=== PATIENT | male | born 1965 ===

== ENCOUNTER 2016-11-02 14:19 | Observation (INO) | payer OTHER ==
[2016-11-02] MEDS ORDERED: Piperacillin/Tazobact 3.375 gm 100 ML IV STA (14:55)
[2016-11-02] MEDS ORDERED: Piperacillin/Tazobact 3.375 gm 100 ML IVPB ONE (15:44)
[2016-11-02 15:57] LABS: BASO # 0.1 K/uL (0.0-0.2); BASO % 1.2 % (0.0-2.0); EOS # 0.1 K/uL (0.0-0.7); EOS % 2.4 % (0.0-4.0); HEMATOCRIT 41.6 % (35.0-51.0); LYMPH # 1.7 K/uL (1.0-4.3); LYMPH % 37.4 % (20.0-40.0); MEAN CELL VOLUME 79.2 fL (80.0-94.0); MEAN CORPUSCULAR HGB CONC 34.2 g/dL (33.0-37.0); MEAN PLATELET VOLUME 10.7 fL (7.2-11.7); MONO # 0.2 K/uL (0.0-0.8); NRBC % 0.1 % (0.0-2.0); RED CELL DISTRIBUTION WIDTH 13.4 % (11.5-14.5); WHITE BLOOD COUNT 4.6 K/uL (4.8-10.8)
[2016-11-02 16:00] LABS: CHLORIDE 106 mmol/L (98-107); POTASSIUM 4.2 mmol/L (3.6-5.2); SODIUM 147 mmol/L (132-148)
[2016-11-02 16:02] LABS: AST/SGOT 32 U/L (17-59); BILIRUBIN,TOTAL 0.6 mg/dL (0.2-1.3); CARBON DIOXIDE 29 mmol/L (22-30); GFR AFRICAN-AMERICAN > 60
[2016-11-02 16:03] LABS: ALB/GLOB RATIO 1.3 (1.0-2.1); ALKALINE PHOSPHATASE 114 U/L (38-126); ALT/SGPT 62 U/L (21-72); BLOOD UREA NITROGEN 11 mg/dL (9-20); CALCIUM 8.8 mg/dl (8.6-10.4); GLUCOSE,RANDOM 179 mg/dL (75-110); TOTAL PROTEIN 7.1 g/dL (6.3-8.3)
--- NOTE | 2016-11-02 16:12 | C.PDOC ---
History Of Present Illness Patient is a 51 year old male, with Hx of IDDM (well controlled), that presents to the ED for evaluation of painless swelling and discoloration over the right 2nd toe since yesterday. Otherwise, denies any fever, chills, pain, drainage, numbness, weakness, or any other associated symptoms at this time. Time Seen by Provider: 11/02/16 14:45 Chief Complaint (Nursing): Lower Extremity Problem/Injury History Per: Patient History/Exam Limitations: no limitations Onset/Duration Of Symptoms: Days (1) Current Symptoms Are (Timing): Still Present Severity: None Pain Scale Rating Of: 0 Recent travel outside of the [place]: No Additional History Per: Patient Past Medical History Reviewed: Historical Data, Nursing Documentation, Vital Signs Vital Signs: Last Vital Signs Temp 98.1 F 11/02/16 14:38 Pulse 108 H 11/02/16 14:38 Resp 18 11/02/16 14:38 BP 105/30 L 11/02/16 14:38 Pulse Ox 100 11/02/16 16:31 - Medical History PMH: Diabetes Family History: States: Unknown Family Hx - Social History Hx Alcohol Use: No Hx Substance Use: No Review Of Systems Except As Marked, All Systems Reviewed And Found Negative. Constitutional: Negative for: Fever, Chills Musculoskeletal: Negative for: Leg Pain, Foot Pain Skin: Positive for: Other (swelling and discoloration to right 2nd toe) Neurological: Negative for: Weakness, Numbness Physical Exam - Physical Exam Appears: Non-toxic, No Acute Distress Skin: Warm, Dry, Other (erythema, and purple discoloration to right 2nd toe) Head: Atraumatic, Normacephalic Eye(s): bilateral: Normal Inspection, EOMI Neck: Supple Chest: Symmetrical Cardiovascular: Rhythm Regular Respiratory: Normal Breath Sounds, No Rales, No Rhonchi, No Wheezing Extremity: Normal ROM, No Tenderness, Capillary Refill (< 2 sec.), No Deformity , Swelling (right 2nd toe) Pulses: Left Dorsalis Pedis: Normal, Right Dorsalis Pedis: Normal Neurological/Psych: Oriented x3, Normal Speech, Normal Cognition, Normal Motor, Normal Sensation ED Course And Treatment - Laboratory Results Result Diagrams: 11/02/16 15:54 11/02/16 16:00 ECG: Interpreted By Me ECG Rhythm: Sinus Rhythm ECG Interpretation: Normal Rate From EC O2 Sat by Pulse Oximetry: 100 (on RA) Pulse Ox Interpretation: Normal - Radiology CXR: Interpreted by Me CXR Interpretation: Yes: No Acute Disease - Other Rad Right 2nd toe X-Ray: Interpreted by Me, Viewed By Me Interpretation: r 2ND TOE cellulitis, no osteo, no gas Progress Note: Blood work, CXR, EKG ordered and reviewed. Patient was treated with Zosyn. Reevaluation Time: 16:49 Reassessment Condition: Improved - Physician Consult Information Outcome Of Conversation: PMD Dr. Ceja- [facility]. 1630: d/w Dr. Prabhakar - Medicine [employer]- ok to med Surg obs. Medical Decision Making Medical Decision Making: diabetic foot cellulitis, started @ R 2nd toe. Disposition Doctor Will See Patient In The: Hospital Counseled Patient/Family Regarding: Studies Performed, Diagnosis - Disposition Disposition: HOSPITALIZED Disposition Time: 16:51 Condition: GOOD - Clinical Impression Clinical Impression: Cellulitis in diabetic foot - Scribe Statement The provider has reviewed the documentation as recorded by the Kianna Vidal Provider Attestation: All medical record entries made by the Kianna were at my direction and personally dictated by me. I have reviewed the chart and agree that the record accurately reflects my personal performance of the history, physical exam, medical decision making, and the department course for this patient. I have also personally directed, reviewed, and agree with the discharge instructions and disposition.
--- NOTE | 2016-11-02 17:27 | RAD ---
PROCEDURE: CHEST RADIOGRAPH, 1 VIEW HISTORY: Shortness of breath COMPARISON: None available. FINDINGS: LUNGS: Clear. PLEURA: No pneumothorax or pleural fluid seen. CARDIOVASCULAR: Normal. OSSEOUS STRUCTURES: No significant abnormalities. VISUALIZED UPPER ABDOMEN: Normal. OTHER FINDINGS: None. IMPRESSION: No active disease.
--- NOTE | 2016-11-02 17:38 | RAD ---
Right toe 2nd digit three views History: Cellulitis. Comparison: None available. Findings: Soft tissue swelling seen at the level of the 2nd digit consistent with known cellulitis. No evidence of gas formation within the soft tissues. Minimal cortical irregularity seen along the distal tuft of the 2nd distal phalanx, nonspecific. Degenerative changes noted at the 1st MTP joint space with some subchondral sclerosis. Impression: Soft tissue swelling seen at the level of the 2nd digit consistent with known cellulitis. No evidence of gas formation within the soft tissues. Minimal cortical irregularity seen along the distal tuft of the 2nd distal phalanx, nonspecific. Degenerative changes noted at the 1st MTP joint space with some subchondral sclerosis. If there is concern for acute osteomyelitis, consider further evaluation with 3 phase bone scan and or MRI.
[2016-11-02 20:21] LABS: RBC URINE 1 /hpf (0-3); URINE BILIRUBIN NEGATIVE (NEGATIVE); URINE BLOOD NEGATIVE (NEGATIVE); URINE COLOR Yellow (YELLOW); URINE GLUCOSE (UA) 3+ mg/dL (Normal); URINE KETONE NEGATIVE (NEGATIVE); URINE LEUKOCYTE ESTERASE NEG Leu/uL (Negative); URINE PROTEIN NEGATIVE (NEGATIVE); URINE UROBILINOGEN NORMAL mg/dL (0.2-1.0); WBC URINE 1 /hpf (0-5)
--- NOTE | 2016-11-02 21:58 | CP.PCM.PN ---
Subjective - Date & Time of Evaluation Date of Evaluation: 11/02/16 Time of Evaluation: 20:40 - Subjective Subjective: H&P dictated #[id number] Objective - Vital Signs/Intake and Output Vital Signs (last 24 hours): Temp Pulse Resp BP Pulse Ox 98.6 F 90 18 185/92 H 100 11/02/16 21:36 11/02/16 21:36 11/02/16 21:36 11/02/16 21:36 11/02/16 21:36 - Medications Medications: Current Medications Insulin Human Regular (Novolin R) 0 unit SC ACHS CB PRN Reason: Protocol
[2016-11-02] MEDS: (Novolin R) Insulin Human Regular 100 units/ml vial SC SCH (22:31)
--- NOTE | 2016-11-03 04:19 | HP ---
CHIEF COMPLAINT: Right foot swelling noted by his this morning. HISTORY OF PRESENT ILLNESS: The patient is a 51-year-old male with past medical history of diabetes mellitus , hypertension, hyperlipidemia who has been following up with Dr. Ceja as a primary care physician, came into the ED with a 1-day history of right big toe swelling and oozing noted by his . As per the patient, this morning, his noticed his right big toe today swollen and red. The patient did not have any pain or any erythema, which made him come to the Emergency Room. He denies any headache, dizziness. Denies any chest pain, shortness of breath, or wheezing. Denies any nausea, vomiting, abdominal pain, diarrhea, or constipation. Denies any urinary complaints. Denies any neurologic symptoms. PAST MEDICAL HISTORY: As described, diabetes mellitus for 8-10 years, hypertension, hyperlipidemia. PAST SURGICAL HISTORY: Denies any past surgical history. FAMILY HISTORY: Diabetes in both parents. PERSONAL HISTORY: He is , having 4 children, currently unemployed. SOCIAL HISTORY: He quit smoking about 12 years ago, used to smoke very light 5-6 cigarettes per day, used to drink heavily, but quit 1 year ago. Denies any other drug abuse. ALLERGIES: No known drug allergies. MEDICATIONS: Zocor 20 mg p.o. at bedtime, metformin 1 gram p.o. b.i.d., lisinopril p.o. daily , Toujeo 5 units subQ at night and 10 units subcutaneous with breakfast. REVIEW OF SYSTEMS: As described in history of present illness. All other systems reviewed and were found to be negative. PHYSICAL EXAMINATION: GENERAL: Middle-aged male, lying in bed, in no acute distress. VITAL SIGNS: Blood pressure 105/30, pulse 108, respirations 18, temperature 98.1 degrees Fahrenheit, O2 sat 100% on room air. HEENT: Pupils equal, round, reacting to light and accommodation. Extraocular muscles intact. No icterus, no pallor, no oral thrush. No pharyngeal congestion. NECK: Supple. No JVD, no thyromegaly. CHEST: Moving equally bilaterally on respiration. LUNGS: Bilateral vesicular breath sounds. No wheezing, no rhonchi. CARDIOVASCULAR: S1, S2 present, regular. ABDOMEN: Soft, nontender. Bowel sounds present. No guarding, no rigidity, no rebound tenderness noted. CENTRAL NERVOUS SYSTEM: Alert, awake, oriented x 3. No focal deficits noted. EXTREMITIES: Right big toe and second toe swollen, erythematous, slightly warm to touch, slightly oozing noted. There is blisterous lesion on the plantar aspect of the second toe. LABORATORY DATA: Labs done from the ED: WBC 4.6, hemoglobin 14.2, hematocrit 41.6, platelets 131. Sodium 147, potassium 4.2, chloride 106, bicarbonate 29, BUN 11, creatinine 0.7, glucose 233, calcium 8.8, total bilirubin 0.6, AST 32, ALT 62, alkaline phosphatase 114, total protein 7.1, albumin 4.0. UA: Specific gravity 1.017, pH 5.0, glucose 3+, otherwise negative. Foot x-ray, soft tissue swelling seen at the level of the second digit. Chest x -ray, no active disease. ASSESSMENT: 1. A middle-aged male with history of hypertension, hyperlipidemia, diabetes mellitus, who has been following up with Dr. Ceja, admitted for right great toe and second toe swelling with cellulitis. 2. Right foot cellulitis appears to be superficial, rule out osteomyelitis. 3. Diabetes mellitus. 4. Hypertension. 5. Hyperlipidemia. PLAN: The patient is being admitted to regular floor. The patient received Zosyn in the ED. We will continue with Zosyn and vancomycin. We will obtain podiatry and ID consults. We will continue with his home medications of Toujeo 10 units in the morning and 5 units at night, lisinopril. We will hold metformin. Continue with Zocor. Repeat labs in the morning. Check EKG. We will add further recommendation as his clinical course progresses. Yeimi Cooper MD cc: [id number] TT: 11/03/2016 04:18:51 hn MTDKlaus
[2016-11-03] MEDS: (Novolin R) Insulin Human Regular 100 units/ml vial SC SCH ×4 (07:47→22:03)
[2016-11-03 09:05] LABS: BASO % 0.9 % (0.0-2.0); EOS # 0.1 K/uL (0.0-0.7); EOS % 3.7 % (0.0-4.0); HEMATOCRIT 36.9 % (35.0-51.0); LYMPH # 1.8 K/uL (1.0-4.3); LYMPH % 59.5 % (20.0-40.0); MEAN CELL VOLUME 78.6 fL (80.0-94.0); MEAN CORPUSCULAR HEMOGLOBIN 26.7 pg (27.0-31.0); MEAN CORPUSCULAR HGB CONC 33.9 g/dL (33.0-37.0); MEAN PLATELET VOLUME 10.7 fL (7.2-11.7); MONO # 0.2 K/uL (0.0-0.8); NRBC % 0.2 % (0.0-2.0); RED CELL DISTRIBUTION WIDTH 13.1 % (11.5-14.5); WHITE BLOOD COUNT 3.1 K/uL (4.8-10.8)
[2016-11-03 09:26] LABS: CHLORIDE 102 mmol/L (98-107); POTASSIUM 4.2 mmol/L (3.6-5.2); SODIUM 140 mmol/L (132-148)
[2016-11-03 09:28] LABS: ALB/GLOB RATIO 1.7 (1.0-2.1); ALKALINE PHOSPHATASE 105 U/L (38-126); ALT/SGPT 51 U/L (21-72); AST/SGOT 30 U/L (17-59); BILIRUBIN,TOTAL 0.5 mg/dL (0.2-1.3); BLOOD UREA NITROGEN 10 mg/dL (9-20); CARBON DIOXIDE 33 mmol/L (22-30); CHOLESTEROL 186 mg/dL (0-199); GFR AFRICAN-AMERICAN > 60; GLUCOSE,RANDOM 152 mg/dL (75-110); TOTAL PROTEIN 5.4 g/dL (6.3-8.3)
[2016-11-03 09:29] LABS: CALCIUM 8.8 mg/dl (8.6-10.4)
[2016-11-03] MEDS: TOUJEO 300 UNITS/ML SC SCH (10:46)
--- NOTE | 2016-11-03 13:18 | NM ---
PROCEDURE: Three-phase bone scan HISTORY: Osteomyelitis suspected right 2nd digit. COMPARISON: November 02, 2016. Right foot reported separately. TECHNIQUE: Radionuclide dose: 23.1 Tc99m MDP Site of administration: Indwelling left upper extremity intravenous line Technique: Three-phase attention right foot 2nd digit. FINDINGS: Flow component: Increased flow to the right foot without focal abnormality. Particular attention directed to the 2nd digit. Blood pool component: No focal abnormalities. Delayed images at 3:00: Degenerative changes right ankle and right foot asymmetric compared to the left ankle and foot. Degenerative changes in both knees. IMPRESSION: Increased flow right lower extremity consistent with cellulitis without evidence of acute osseous process/ acute osteomyelitis. One
--- NOTE | 2016-11-03 13:40 | CP.PCM.CON ---
History of Present Illness - History of Present Illness History of Present Illness: 51 y/o male patient with PMH of DM and Neuropathy seen and evaluated at bedside after request for podiatry consult for right 2nd digit. Patient was resting comfortably in bed and in NAD. Patient states that he noticed discoloration of right foot 2nd toe however patient denies any pedal pain at this time. Patient also denies any ever, chills, drainage, numbness, weakness, or any other associated symptoms at this time. Past Patient History - Past Medical History & Family History Past Medical History?: Yes - Past Social History Smoking Status: Former Smoker - CARDIAC Hx Cardiac Disorders: Yes Hx Hypertension: Yes - PULMONARY Hx Respiratory Disorders: No - NEUROLOGICAL Hx Neurological Disorder: No - HEENT Hx HEENT Problems: No - RENAL Hx Chronic Kidney Disease: No - ENDOCRINE/METABOLIC Hx Diabetes Mellitus Type 2: Yes - HEMATOLOGICAL/ONCOLOGICAL Hx Blood Disorders: No - INTEGUMENTARY Hx Dermatological Problems: No - MUSCULOSKELETAL/RHEUMATOLOGICAL Hx Musculoskeletal Disorders: No Hx Falls: No - GASTROINTESTINAL Hx Gastrointestinal Disorders: No - GENITOURINARY/GYNECOLOGICAL Hx Genitourinary Disorders: No - PSYCHIATRIC Hx Substance Use: No - SURGICAL HISTORY Hx Surgeries: No - ANESTHESIA Hx Anesthesia: No Meds Allergies/Adverse Reactions: Allergies Allergy/AdvReac Type Severity Reaction Status Date / Time No Known Allergies Allergy Unverified 11/02/16 14:37 - Medications Medications: Current Medications Home Med (Patient's Own Injectable) 10 unit SC DAILY [facility] Last Admin: 11/03/16 10:46 Dose: 10 unit Home Med (Patient's Own Injectable) 5 unit SC ACD [facility] Ceftriaxone Sodium 1 gm/ (Sodium Chloride) 100 mls @ 100 mls/hr IVPB DAILY [facility] Last Admin: 11/03/16 10:33 Dose: 100 mls/hr Vancomycin HCl 1,000 mg/ (Sodium Chloride) 250 mls @ 166.6 mls/hr IVPB Q12H [facility] Last Admin: 11/03/16 10:35 Dose: 166.6 mls/hr Insulin Human Regular (Novolin R) 0 unit SC ACHS [facility] PRN Reason: Protocol Last Admin: 11/03/16 12:14 Dose: Not Given Lisinopril (Zestril) 20 mg PO DAILY [facility] Last Admin: 11/03/16 10:43 Dose: 20 mg Metformin HCl (Glucophage) 1,000 mg PO BID [facility] Last Admin: 11/03/16 10:42 Dose: 1,000 mg Rosuvastatin Calcium (Crestor) 5 mg PO HS [facility] Last Admin: 11/02/16 23:02 Dose: 5 mg Physical Exam - Constitutional Appears: Well, Non-toxic, No Acute Distress - Extremities Exam Additional comments: RLE Vascular: DP and PT faintly palpable , CFT is less than 3 seconds, normal skin coloration except 2nd digit area Derm: Hemolytic blister is noted proximal-medial aspect of right foot 2nd, 3r and 4th digits, no erythema noted, no signs of infection, no open wound, no drainage, no malodor, No purulence, no tunneling, no sinus track Ortho: No pain with palpation, normal ROM of ankle and STJ Neuro: Limited protective sensation - Neurological Exam Neurological exam: Alert, CN II-XII Intact, Normal Gait, Oriented x3 - Psychiatric Exam Psychiatric exam: Normal Affect, Normal Mood Results - Vital Signs Recent Vital Signs: Last Vital Signs Temp 97.9 F 11/03/16 00:00 Pulse 75 11/03/16 00:00 Resp 20 11/03/16 00:00 BP 159/88 H 11/03/16 10:40 Pulse Ox 98 11/03/16 00:00 - Labs Result Diagrams: 11/03/16 08:43 11/03/16 08:43 Labs: Laboratory Results - last 24 hr 11/02/16 11/02/16 11/03/16 20:14 22:27 07:06 WBC RBC Hgb Hct MCV MCH MCHC RDW Plt Count MPV Neut % (Auto) Lymph % (Auto) Cannon % (Auto) Eos % (Auto) Baso % (Auto) Neut # Lymph # Cannon # Eos # Baso # Differential Comment Sodium Potassium Chloride Carbon Dioxide Anion Gap BUN Creatinine Est GFR ( Amer) Est GFR (Non-Af Amer) POC Glucose (mg/dL) 155 H 90 Random Glucose Calcium Total Bilirubin AST ALT Alkaline Phosphatase Total Protein Albumin Globulin Albumin/Globulin Ratio Triglycerides Cholesterol LDL Cholesterol Direct HDL Cholesterol Urine Color Yellow Urine Clarity Clear Urine pH 5.0 Ur Specific [place] 1.017 Urine Protein Negative Urine Glucose (UA) 3+ H Urine Ketones Negative Urine Blood Negative Urine Nitrate Negative Urine Bilirubin Negative Urine Urobilinogen Normal Ur Leukocyte Esterase Neg Urine WBC (Auto) 1 Urine RBC (Auto) 1 Ur Squamous Epith Cells < 1 11/03/16 11/03/16 08:43 11:37 WBC 3.1 L RBC 4.69 Hgb 12.5 Hct 36.9 MCV 78.6 L MCH 26.7 L MCHC 33.9 RDW 13.1 Plt Count 112 L MPV 10.7 Neut % (Auto) 27.9 L Lymph % (Auto) 59.5 H Cannon % (Auto) 8.0 Eos % (Auto) 3.7 Baso % (Auto) 0.9 Neut # 0.9 L Lymph # 1.8 Cannon # 0.2 Eos # 0.1 Baso # 0.0 Differential Comment Sodium 140 Potassium 4.2 Chloride 102 Carbon Dioxide 33 H Anion Gap 9 L BUN 10 Creatinine 0.7 L Est GFR ( Amer) > 60 Est GFR (Non-Af Amer) > 60 POC Glucose (mg/dL) 99 Random Glucose 152 H Calcium 8.8 Total Bilirubin 0.5 AST 30 ALT 51 Alkaline Phosphatase 105 Total Protein 5.4 L Albumin 3.4 L Globulin 2.0 L Albumin/Globulin Ratio 1.7 Triglycerides 58 Cholesterol 186 LDL Cholesterol Direct 77 HDL Cholesterol 59 Urine Color Urine Clarity Urine pH Ur Specific [place] Urine Protein Urine Glucose (UA) Urine Ketones Urine Blood Urine Nitrate Urine Bilirubin Urine Urobilinogen Ur Leukocyte Esterase Urine WBC (Auto) Urine RBC (Auto) Ur Squamous Epith Cells Assessment & Plan - Assessment and Plan (Free Text) Assessment: 51 y/o male patient with blister formation of right foot 2nd, 3rd and 4th digits Plan: Patient seen and evaluated at bedside All the questions and concerns were addressed Labs and vitals were reviewed Discussed with attending Dr. Garnica Right foot was cleansed with normal sterile saline, Utilizing #18 gauge needle blisters were drained and wound culture was obtained Right foot was dressed with betadine soaked 4x4 and DSD Right foot X ray: Soft tissue swelling seen at the level of the 2nd digit consistent with known cellulitis Bone Scan: Increased flow right lower extremity consistent with cellulitis without evidence of acute osseous process/acute osteomyelitis. Continue IV abx treatment Podiatry will continue to follow while patient remains in house.
--- NOTE | 2016-11-03 15:35 | CP.PCM.PN ---
Subjective - Date & Time of Evaluation Date of Evaluation: 11/03/16 Time of Evaluation: 15:30 - Subjective Subjective: Progress note dictated #[id number] Objective - Vital Signs/Intake and Output Vital Signs (last 24 hours): Temp Pulse Resp BP Pulse Ox 97.9 F 75 20 159/88 H 98 11/03/16 00:00 11/03/16 00:00 11/03/16 00:00 11/03/16 10:40 11/03/16 00:00 Intake and Output: 11/03/16 11/03/16 06:59 18:59 Intake Total 240 Balance 240 - Medications Medications: Current Medications Home Med (Patient's Own Injectable) 10 unit SC DAILY [facility] Last Admin: 11/03/16 10:46 Dose: 10 unit Home Med (Patient's Own Injectable) 5 unit SC ACD [facility] Ceftriaxone Sodium 1 gm/ (Sodium Chloride) 100 mls @ 100 mls/hr IVPB DAILY [facility] Last Admin: 11/03/16 10:33 Dose: 100 mls/hr Vancomycin HCl 1,000 mg/ (Sodium Chloride) 250 mls @ 166.6 mls/hr IVPB Q12H [facility] Last Admin: 11/03/16 10:35 Dose: 166.6 mls/hr Insulin Human Regular (Novolin R) 0 unit SC ACHS [facility] PRN Reason: Protocol Last Admin: 11/03/16 12:14 Dose: Not Given Lisinopril (Zestril) 20 mg PO DAILY [facility] Last Admin: 11/03/16 10:43 Dose: 20 mg Metformin HCl (Glucophage) 1,000 mg PO BID [facility] Last Admin: 11/03/16 10:42 Dose: 1,000 mg Rosuvastatin Calcium (Crestor) 5 mg PO [facility] Last Admin: 11/02/16 23:02 Dose: 5 mg - Labs Labs: 11/03/16 08:43 11/03/16 08:43
[2016-11-03] MEDS ORDERED: Patient's Own Injectable SC SCH (16:30)
--- NOTE | 2016-11-03 18:38 | PN ---
DATE: 11/03/2016 The patient was seen and examined at bedside. The patient is feeling better, offers no new complaint s. The right foot is with a dressing in place. PHYSICAL EXAMINATION: GENERAL: Middle-aged male, lying in bed, in no acute distress. VITAL SIGNS: Blood pressure 179/93, pulse 80, respirations 20, temperature 98.4 degrees Fahrenheit, O2 sat is 100% on room air. HEENT: Pupils equal, round, reacting to light and accommodation. Extraocular muscles intact. No ic terus, no pallor. NECK: Supple. No JVD. LUNGS: Bilateral vesicular breath sounds. No wheezing, no rhonchi. CARDIOVASCULAR: S1 and S2 present, regular. ABDOMEN: Soft, nontender. Bowel sounds present. No guarding, no rigidity, no rebound tenderness no bam. CENTRAL NERVOUS SYSTEM: Alert, awake, oriented x 3. No focal deficits noted. EXTREMITIES: Right foot with dressing in place. MEDICATIONS: Include Rocephin 1 gram daily, Toujeo 10 units in the morning and 5 units at night, Zes tril 20 mg p.o. daily, metformin 1000 mg p.o. b.i.d., Crestor 5 mg p.o. at bedtime, vancomycin 1 gram IV q. 12 hours. LABORATORIES: From this morning, WBC 3.1, hemoglobin 12.5, hematocrit 36.9, platelets 112. Sodium 1 40, potassium 4.2, chloride 102, bicarb 33, BUN 10, creatinine 0.7, glucose 99. LFTs within normal l imits. Triglycerides 58, cholesterol 186, LDL 77, HDL 59. Bone scan negative for any osteomyelitis. ASSESSMENT AND PLAN: Middle-aged male with history of hypertension, hyperlipidemia, diabetes mellitu s. Admitted for right foot cellulitis with a small localized abscess without any osteomyelitis. Cam l continue with Rocephin 1 gram IV daily, vancomycin 1 gram IV q. 12 hours. The patient was evaluate d by podiatry. Will continue with his current home medications. Blood pressure is slightly high. W ill add his hydrochlorothiazide. Will follow up with podiatry and ID. Will add further recommendati on as his clinical course progresses. Padmavathi Jonnalagadda MD cc: [id number] TT: 11/03/2016 18:37:49 Confirmation # [id number] Dictation # [id number] en
[2016-11-04] MEDS: (Novolin R) Insulin Human Regular 100 units/ml vial SC SCH ×4 (08:32→22:09)
[2016-11-04] MEDS: TOUJEO 300 UNITS/ML SC SCH (10:04)
--- NOTE | 2016-11-04 11:43 | CP.PCM.PN ---
Subjective - Date & Time of Evaluation Date of Evaluation: 11/04/16 Time of Evaluation: 11:40 - Subjective Subjective: Progress note dictated #[id number] Objective - Vital Signs/Intake and Output Vital Signs (last 24 hours): Temp Pulse Resp BP Pulse Ox 98.4 F 84 20 164/99 H 99 11/04/16 08:41 11/04/16 08:41 11/04/16 08:41 11/04/16 08:41 11/04/16 08:41 Intake and Output: 11/04/16 11/04/16 06:59 18:59 Intake Total 460 Balance 460 - Medications Medications: Current Medications Acetaminophen (Tylenol 325mg Tab) 650 mg PO Q6 PRN PRN Reason: Headache Last Admin: 11/03/16 22:46 Dose: 650 mg Home Med (Patient's Own Injectable) 10 unit SC DAILY [facility] Last Admin: 11/04/16 10:04 Dose: 10 unit Home Med (Patient's Own Injectable) 5 unit SC ACD [facility] Hydrochlorothiazide (Hydrodiuril) 25 mg PO DAILY [facility] Ceftriaxone Sodium 1 gm/ (Sodium Chloride) 100 mls @ 100 mls/hr IVPB DAILY [facility] Last Admin: 11/04/16 10:03 Dose: 100 mls/hr Vancomycin HCl 1,000 mg/ (Sodium Chloride) 250 mls @ 166.6 mls/hr IVPB Q12H [facility] Last Admin: 11/04/16 11:02 Dose: 166.6 mls/hr Insulin Human Regular (Novolin R) 0 unit SC ACHS [facility] PRN Reason: Protocol Last Admin: 11/04/16 08:32 Dose: Not Given Lisinopril (Zestril) 20 mg PO DAILY [facility] Last Admin: 11/04/16 10:04 Dose: 20 mg Metformin HCl (Glucophage) 1,000 mg PO BID [facility] Last Admin: 11/04/16 10:04 Dose: 1,000 mg Metoprolol Tartrate (Lopressor) 25 mg PO BID [facility] Rosuvastatin Calcium (Crestor) 5 mg PO HS [facility] Last Admin: 11/03/16 22:47 Dose: 5 mg - Labs Labs: 11/03/16 08:43 11/03/16 08:43
--- NOTE | 2016-11-04 12:01 | CP.PCM.PN ---
Subjective - Date & Time of Evaluation Date of Evaluation: 11/04/16 Time of Evaluation: 12:15 - Subjective Subjective: Patient was seen and evaluated at bedside for follow-up on Right foot blisters/ cellulitis. Patient was resting comfortably, in NAD. He denies any F/C/N/V/SOB and states that he feels well today. No pedal complaints reported at this time. Right foot dressing appears to be C/D/I. Objective - Vital Signs/Intake and Output Vital Signs (last 24 hours): Temp Pulse Resp BP Pulse Ox 98.4 F 84 20 164/99 H 99 11/04/16 08:41 11/04/16 08:41 11/04/16 08:41 11/04/16 08:41 11/04/16 08:41 Intake and Output: 11/04/16 11/04/16 06:59 18:59 Intake Total 460 Balance 460 - Medications Medications: Current Medications Acetaminophen (Tylenol 325mg Tab) 650 mg PO Q6 PRN PRN Reason: Headache Last Admin: 11/03/16 22:46 Dose: 650 mg Home Med (Patient's Own Injectable) 10 unit SC DAILY [facility] Last Admin: 11/04/16 10:04 Dose: 10 unit Home Med (Patient's Own Injectable) 5 unit SC ACD [facility] Hydrochlorothiazide (Hydrodiuril) 25 mg PO DAILY [facility] Ceftriaxone Sodium 1 gm/ (Sodium Chloride) 100 mls @ 100 mls/hr IVPB DAILY [facility] Last Admin: 11/04/16 10:03 Dose: 100 mls/hr Vancomycin HCl 1,000 mg/ (Sodium Chloride) 250 mls @ 166.6 mls/hr IVPB Q12H [facility] Last Admin: 11/04/16 11:02 Dose: 166.6 mls/hr Insulin Human Regular (Novolin R) 0 unit SC ACHS CB PRN Reason: Protocol Last Admin: 11/04/16 08:32 Dose: Not Given Lisinopril (Zestril) 20 mg PO DAILY [facility] Last Admin: 11/04/16 10:04 Dose: 20 mg Metformin HCl (Glucophage) 1,000 mg PO BID [facility] Last Admin: 11/04/16 10:04 Dose: 1,000 mg Metoprolol Tartrate (Lopressor) 25 mg PO BID [facility] Rosuvastatin Calcium (Crestor) 5 mg PO HS [facility] Last Admin: 11/03/16 22:47 Dose: 5 mg - Labs Labs: 11/03/16 08:43 11/03/16 08:43 - Constitutional Appears: Non-toxic, No Acute Distress - Neurological Exam Neurological Exam: Alert, Awake, Oriented x3 - Psychiatric Exam Psychiatric exam: Normal Affect, Normal Mood - Additional Findings Additional findings: Right foot examination: Vascular: DP and PT faintly palpable , CFT < 3 sec x5; normal temperature gradient noted Derm: healing is noted at the previous blister sites in the 1st, 2nd and 3rd webspaces. No erythema, no edema, no open lesions noted at this time. Ortho: No pain with palpation, normal ROM of ankle and STJ Neuro: Limited protective sensation Assessment and Plan - Assessment and Plan (Free Text) Assessment: 51 y/o male with healing blister sites at the Right foot 2nd, 3rd and 4th webspaces Plan: Patient was seen and evaluated at bedside Labs and vitals reviewed Right foot blister sites noted to be healing Applied betadine DSD to the blister sites Continue IV abx, as per ID recommendations Discussed patient with attending, Dr. Garnica Podiatry to follow while patient remains in house
--- NOTE | 2016-11-04 16:58 | VASCLAB ---
STUDY DESCRIPTION: HISTORY: r/o pad PRIORS: None. TECHNIQUE: Pulse volume recording waveforms and segmental pressures of bilateral lower extremities at multiple levels were obtained. Ankle Brachial Indices (ABIs) were calculated. Report prepared by MARITZA Mondragon, RVT RIGHT LOWER EXTREMITY: * Brachial artery: Pressure - 182 mmHg. * High thigh: Pressure - 203 mmHg: Ratio - 1.10: PVR waveform - Pulsatile * Low thigh: Pressure - 196 mmHg: Ratio - 1.07 PVR waveform: Pulsatile * Calf: Pressure - 210 mmHg: Ratio - 1.14 PVR waveform: Pulsatile * Posterior tibial Artery: Pressure - 217 mmHg: Ratio - 1.18 PVR waveform: Pulsatile * Dorsalis pedis Artery: Pressure - 212 mmHg: Ratio - 1.15 PVR waveform: Pulsatile Ankle brachial index (KATINA): 1.18 LEFT LOWER EXTREMITY: * Brachial artery: Pressure - 184 mmHg. * High thigh: Pressure - 206 mmHg: Ratio - 1.12: PVR waveform - Pulsatile * Low thigh: Pressure - 210 mmHg: Ratio - 1.14 PVR waveform: Pulsatile * Calf: Pressure - 213 mmHg: Ratio - 1.16 PVR waveform: Pulsatile * Posterior tibial Artery: Pressure - 218 mmHg: Ratio - 1.18 PVR waveform: Pulsatile * Dorsalis pedis Artery: Pressure - 200 mmHg: Ratio - 1.09 PVR waveform: Pulsatile Ankle brachial index (KATINA): 1.18 OTHER FINDINGS: None. IMPRESSION: Right: There was no evidence of hemodynamically significant arterial insufficiency in the right lower extremity. Left: There was no evidence of hemodynamically significant arterial insufficiency in the left lower extremity.
--- NOTE | 2016-11-04 20:25 | PN ---
DATE: 11/04/2016 The patient was seen and examined this morning. The patient offers no new complaints, feeling better . PHYSICAL EXAMINATION: GENERAL: Middle-aged male, lying in bed, in no acute distress. VITAL SIGNS: Blood pressure 150/90, pulse 78, respirations 20, temperature 98.6 degrees Fahrenheit, O2 sat 100% on room air. HEENT: Pupils equal, reacting to light and accommodation. Extraocular muscles intact. No icterus, no pallor. No oral thrush. No pharyngeal congestion. NECK: Supple. No JVD. LUNGS: Bilateral vesicular breath sounds. No wheezing, no rhonchi. CARDIOVASCULAR: S1, S2 present, regular. ABDOMEN: Soft, nontender. Bowel sounds present. No guarding, no rigidity, no rebound tenderness no bam. CENTRAL NERVOUS SYSTEM: Alert, awake, oriented x 3. No focal deficits noted. EXTREMITIES: Right foot cellulitis with a dressing in place. MEDICATIONS: Tylenol, Rocephin 1 gram IV daily, Toujeo 10 units in the morning and 5 units at night, hydrochloroth iazide 25 mg p.o. daily, Zestril 20 mg p.o. daily, metformin 1000 mg p.o. b.i.d., Lopressor 25 mg p.o . b.i.d., Crestor 5 mg p.o. at bedtime, vancomycin 1 gram IV q. 12 hours. ASSESSMENT AND PLAN: Middle-aged male with history of hypertension, diabetes mellitus, hyperlipidemia, admitted for right foot cellulitis with localized abscess formation. Bone scan is negative for osteomyelitis, on Roceph in and vancomycin. Podiatry consult appreciated. We will continue with current antibiotics. If pat ient is cleared by ID and podiatry, we will plan discharging the patient home on p.o. antibiotics. W e will request professor of social work for discharge planning. Yeimi Cooper MD cc: [id number] TT: 11/04/2016 20:25:11 Confirmation # [id number] Dictation # [id number]
[2016-11-05] MEDS: (Novolin R) Insulin Human Regular 100 units/ml vial SC SCH ×4 (08:09→22:32)
[2016-11-05 08:52] LABS: BASO % 1.2 % (0.0-2.0); EOS # 0.1 K/uL (0.0-0.7); EOS % 3.7 % (0.0-4.0); HEMATOCRIT 40.4 % (35.0-51.0); LYMPH # 1.7 K/uL (1.0-4.3); LYMPH % 45.6 % (20.0-40.0); MEAN CORPUSCULAR HEMOGLOBIN 26.7 pg (27.0-31.0); MEAN CORPUSCULAR HGB CONC 33.8 g/dL (33.0-37.0); MONO # 0.3 K/uL (0.0-0.8); MONO % 6.8 % (0.0-10.0); NRBC % 0.1 % (0.0-2.0); RED CELL DISTRIBUTION WIDTH 13.2 % (11.5-14.5); WHITE BLOOD COUNT 3.7 K/uL (4.8-10.8)
[2016-11-05 09:10] LABS: CHLORIDE 101 mmol/L (98-107)
[2016-11-05 09:11] LABS: POTASSIUM 4.1 mmol/L (3.6-5.2); SODIUM 141 mmol/L (132-148)
[2016-11-05 09:13] LABS: ALB/GLOB RATIO 1.8 (1.0-2.1); ALKALINE PHOSPHATASE 113 U/L (38-126); ALT/SGPT 48 U/L (21-72); AST/SGOT 24 U/L (17-59); BILIRUBIN,TOTAL 0.4 mg/dL (0.2-1.3); BLOOD UREA NITROGEN 14 mg/dL (9-20); CARBON DIOXIDE 33 mmol/L (22-30); GFR AFRICAN-AMERICAN > 60; GLUCOSE,RANDOM 127 mg/dL (75-110)
[2016-11-05 09:14] LABS: CALCIUM 9.1 mg/dl (8.6-10.4)
--- NOTE | 2016-11-05 10:56 | CON ---
DATE: 11/04/2016 REQUESTING PHYSICIAN: Yeimi Cooper MD HISTORY OF PRESENT ILLNESS: This patient is a 51-year-old male. He has a history of insulin-dependent diabetes. He says he has been on insulin for 1 year, but he has had diabetes for more than 10 years. He says his both parents have diabetes. Came in for evaluation of swelling and pain and discoloration of the right second toe. Right now he has a dressing on it and he said they did some cleaning. He noticed discoloration of his right foot, came in with pain and swelling____. He denied any fever____, chills, drainage, or any other problems going on. He was seen by the dish cloth inspector and there was a hemolytic blister on the right foot between the second, third and fourth digits, and it has a dressing at this time; I am unable to evaluate it, so will leave him on antibiotics. ALLERGIES: He is not allergic to any medicine. PAST SURGICAL HISTORY: He denies any previous surgeries. PAST MEDICAL HISTORY: Significant for diabetes. SOCIAL HISTORY: Negative for smoking or drinking or any drug abuse. REVIEW OF SYSTEMS: He denies any headaches. No _fever___, no chills. He came because of foot pain. He suffers from diabetes. He noted discoloration of the second toe. Denies any nausea or vomiting. No chest pain, no shortness of breath, no urinary symptoms. He has a dressing on his right foot at this time. MEDICATIONS: He is on Tylenol, Rocephin. He is on insulin. He is on Zestril, Glucophage, Lopressor, Crestor and he is getting vancomycin 1 gram q. 12 and Rocephin 1 gram daily. PHYSICAL EXAMINATION: VITAL SIGNS: I find his temperature is 98.4, pulse is 84, blood pressure is 164 /99, respirations are 20. HEENT: Head is atraumatic, normocephalic. Pupils are reacting to light. Eye movements are unremarkable. Tongue is moist. NECK: Supple. RANGEL is flat. Trachea is central. CHEST WALL: Symmetrical. LUNGS: Clear. No crackles or rales heard. No rhonchi, no wheezing. HEART: S1, S2 is regular. No murmurs appreciated. ABDOMEN: Soft, nontender. No guarding, no rigidity present. EXTREMITIES: There is swelling at the right second toe I am told with a dressing at this time with iodine packing all around. Left foot is unremarkable. LABORATORY DATA: Noted. Labs show white count is 3.1, it was from 11/03/2016, yesterday. Hemoglobin 12.5, hematocrit 36.9, platelet count is 112. BUN is 10 , creatinine 0.7. Sugar was 152. Urine shows 3+ glucose. He had a bone scan done on 11/03/2016 which showed increased flow right lower extremity consistent with cellulitis without evidence of acute osseous process, ____. So that is there. He also had a foot x-ray when he came in. Soft tissue swelling at the level of second digit consistent with known cellulitis and minimal cortical erosion seen in the distal tuft of the second distal phalanx, nonspecific. If there is a consideration of 3-phase bone scan or an MRI, I probably will get an MRI done, but I would like to see the area first. Chest x-ray shows no active disease. So at this time, we are waiting for the wound culture which is negative at 24 hours. Blood cultures x 2 are negative. The patient is on IV antibiotics. Will continue those and will get a trough level and vancomycin peak and trough tomorrow and will follow. IMPRESSION: He came in with cellulitis, he is diabetic and has a lesion which is probably a blister versus abscess and it needs to be evaluated. Will follow with primary and the dish cloth inspector. Didier Mccarthy MD cc: [id number] TT: 11/04/2016 19:39:43 Confirmation # [id number] Dictation # [id number] VARGAS
[2016-11-05] MEDS: TOUJEO 300 UNITS/ML SC SCH (11:05)
--- NOTE | 2016-11-05 11:17 | CP.PCM.PN ---
Subjective - Date & Time of Evaluation Date of Evaluation: 11/05/16 Time of Evaluation: 11:20 - Subjective Subjective: Progress note dictated #[id number] Objective - Vital Signs/Intake and Output Vital Signs (last 24 hours): Temp Pulse Resp BP Pulse Ox 98.6 F 108 H 20 124/96 H 98 11/05/16 07:00 11/05/16 07:00 11/05/16 07:00 11/05/16 10:13 11/05/16 07:00 Intake and Output: 11/05/16 11/05/16 06:59 18:59 Intake Total 540 Balance 540 - Medications Medications: Current Medications Acetaminophen (Tylenol 325mg Tab) 650 mg PO Q6 PRN PRN Reason: Headache Last Admin: 11/03/16 22:46 Dose: 650 mg Home Med (Patient's Own Injectable) 10 unit SC DAILY [facility] Last Admin: 11/05/16 11:05 Dose: 10 unit Home Med (Patient's Own Injectable) 5 unit SC ACD [facility] Hydrochlorothiazide (Hydrodiuril) 25 mg PO DAILY [facility] Last Admin: 11/05/16 10:14 Dose: 25 mg Ceftriaxone Sodium 1 gm/ (Sodium Chloride) 100 mls @ 100 mls/hr IVPB DAILY [facility] Last Admin: 11/05/16 10:14 Dose: 100 mls/hr Vancomycin HCl 1,000 mg/ (Sodium Chloride) 250 mls @ 166.6 mls/hr IVPB Q12H [facility] Last Admin: 11/05/16 11:06 Dose: 166.6 mls/hr Insulin Human Regular (Novolin R) 0 unit SC ACHS CB PRN Reason: Protocol Last Admin: 11/05/16 08:09 Dose: Not Given Lisinopril (Zestril) 20 mg PO DAILY [facility] Last Admin: 11/05/16 10:23 Dose: 20 mg Metformin HCl (Glucophage) 1,000 mg PO BID [facility] Last Admin: 11/05/16 10:08 Dose: Not Given Metoprolol Tartrate (Lopressor) 25 mg PO BID [facility] Last Admin: 11/05/16 10:13 Dose: 25 mg Rosuvastatin Calcium (Crestor) 5 mg PO HS [facility] Last Admin: 11/04/16 22:07 Dose: 5 mg - Labs Labs: 11/05/16 08:45 11/05/16 08:45
--- NOTE | 2016-11-05 15:57 | CP.PCM.PN ---
Subjective - Date & Time of Evaluation Date of Evaluation: 11/05/16 Time of Evaluation: 09:35 - Subjective Subjective: Patient was seen and evaluated at bedside with Dr. Garnica for follow-up on Right foot blisters/cellulitis. Patient was resting comfortably, in NAD. He denies any F/C/N/V/SOB and states that he feels well today. No acute overnight events reported. Objective - Vital Signs/Intake and Output Vital Signs (last 24 hours): Temp Pulse Resp BP Pulse Ox 98.6 F 108 H 20 124/96 H 98 11/05/16 07:00 11/05/16 07:00 11/05/16 07:00 11/05/16 10:13 11/05/16 07:00 Intake and Output: 11/05/16 11/05/16 06:59 18:59 Intake Total 540 650 Balance 540 650 - Medications Medications: Current Medications Acetaminophen (Tylenol 325mg Tab) 650 mg PO Q6 PRN PRN Reason: Headache Last Admin: 11/03/16 22:46 Dose: 650 mg Home Med (Patient's Own Injectable) 10 unit SC DAILY [facility] Last Admin: 11/05/16 11:05 Dose: 10 unit Home Med (Patient's Own Injectable) 5 unit SC ACD [facility] Hydrochlorothiazide (Hydrodiuril) 25 mg PO DAILY [facility] Last Admin: 11/05/16 10:14 Dose: 25 mg Ceftriaxone Sodium 1 gm/ (Sodium Chloride) 100 mls @ 100 mls/hr IVPB DAILY [facility] Last Admin: 11/05/16 10:14 Dose: 100 mls/hr Vancomycin HCl 1,000 mg/ (Sodium Chloride) 250 mls @ 166.6 mls/hr IVPB Q12H [facility] Last Admin: 11/05/16 11:06 Dose: 166.6 mls/hr Insulin Human Regular (Novolin R) 0 unit SC ACHS CB PRN Reason: Protocol Last Admin: 11/05/16 11:58 Dose: Not Given Lisinopril (Zestril) 20 mg PO DAILY [facility] Last Admin: 11/05/16 10:23 Dose: 20 mg Metformin HCl (Glucophage) 1,000 mg PO BID [facility] Last Admin: 11/05/16 10:08 Dose: Not Given Metoprolol Tartrate (Lopressor) 25 mg PO BID [facility] Last Admin: 11/05/16 10:13 Dose: 25 mg Rosuvastatin Calcium (Crestor) 5 mg PO HS [facility] Last Admin: 11/04/16 22:07 Dose: 5 mg - Labs Labs: 11/05/16 08:45 11/05/16 08:45 - Additional Findings Additional findings: Right foot examination: Vascular: DP and PT faintly palpable , CFT < 3 sec x5; normal temperature gradient noted Derm: healing is noted at the previous blister sites in the 1st, 2nd and 3rd webspaces. No erythema, no edema, no open lesions noted at this time. Ortho: No pain with palpation, normal ROM of ankle and STJ Neuro: Limited protective sensation Assessment and Plan - Assessment and Plan (Free Text) Assessment: 51 y/o male with healing blister sites at the Right foot 2nd, 3rd and 4th webspaces Plan: Patient was seen and evaluated at bedside with attending, Dr. Garnica Labs and vitals reviewed Right foot blister sites noted to be healing Applied betadine DSD to the blister sites Continue IV abx, as per ID recommendations Podiatry to follow while patient remains in house
--- NOTE | 2016-11-05 22:38 | PN ---
DATE: 11/05/2016 The patient was seen and examined on rounds this morning. The patient is feeling much better. Denie s any new complaints. On examination, a middle-aged male lying in bed in no acute distress. Blood pressure 124/96, pulse 78, respirations 20, temperature 98 degrees Fahrenheit, O2 sat is 99% on room air. HEENT: Pupils equal, round, reacting to light and accommodation. Extraocular muscles intact. No ic terus, no pallor. No oral thrush. No pharyngeal congestion. NECK: Supple. No JVD, no thyromegaly. CHEST: Moving equally bilaterally on respiration. LUNGS: Bilateral vesicular breath sounds. No wheezing, no rhonchi. CARDIOVASCULAR SYSTEM: S1, S2 present, regular. ABDOMEN: Soft, nontender. Bowel sounds present. No guarding, no rigidity, no rebound tenderness no bam. CENTRAL NERVOUS SYSTEM: Alert, awake, oriented x 3. No focal deficits noted. EXTREMITIES: Right foot abscess and cellulitis, improving with a dressing in place. MEDICATIONS: Include Tylenol as needed, Rocephin 1 g IV daily today, Toujeo 10 units in the morning and 5 units at night, hydrochlorothiazide 25 mg p.o. daily, Zestril 20 mg p.o. daily, metformin 1000 mg p.o. b.i.d., Lopressor 25 mg p.o. b.i.d., Crestor 5 mg p.o. at bedtime, vancomycin 1 g IV q. 12 h ours. LABORATORIES: Blood cultures negative. Wound cultures are negative so far. Labs from this morning: WBC 3.7, hemoglobin 13.7, hematocrit 40.4, platelets 117. Sodium 141, potassium 4.1, chloride 101, bicarbonate 33, BUN 14, creatinine 0.8, glucose 177, calcium 9.1. Other LFTs within normal limits. ASSESSMENT AND PLAN: Elderly male with history of hypertension, diabetes mellitus, hyperlipidemia, a dmitted for right foot cellulitis with blister and abscess of the big toe, on Rocephin and vancomycin . His blood pressure is improving on adjusted medication. Will continue with his current medication . His Accu-Cheks are fair. Follow up with ID and podiatry regarding discharge planning. Will castillo nue with other current medication. Yeimi Cooper MD cc: [id number] TT: 11/05/2016 22:38:12 Confirmation # [id number] Dictation # [id number]
[2016-11-06] MEDS: (Novolin R) Insulin Human Regular 100 units/ml vial SC SCH (07:08)
[2016-11-06 08:14] VITALS: BP 107/73; PULSE 97; RESP 20; TEMP 98; O2SAT 99
--- NOTE | 2016-11-06 08:30 | CARD ---
APPROVED REPORT EKG Measurement Heart [id number] <Conclusion> Normal sinus rhythm Nonspecific T wave abnormality Abnormal ECG
[2016-11-06] MEDS: TOUJEO 300 UNITS/ML SC SCH (10:30)
--- NOTE | 2016-11-06 11:46 | CP.PCM.PN ---
Subjective - Date & Time of Evaluation Date of Evaluation: 11/06/16 Time of Evaluation: 11:00 - Subjective Subjective: Discharge summary dictated #[id number] Objective - Vital Signs/Intake and Output Vital Signs (last 24 hours): Temp Pulse Resp BP Pulse Ox 98.0 F 97 H 20 107/73 99 11/06/16 08:13 11/06/16 08:13 11/06/16 08:13 11/06/16 10:29 11/06/16 08:13 Intake and Output: 11/06/16 11/06/16 06:59 18:59 Intake Total 240 Balance 240 - Medications Medications: Current Medications Acetaminophen (Tylenol 325mg Tab) 650 mg PO Q6 PRN PRN Reason: Headache Last Admin: 11/03/16 22:46 Dose: 650 mg Home Med (Patient's Own Injectable) 10 unit SC DAILY [facility] Last Admin: 11/06/16 10:30 Dose: 10 unit Hydrochlorothiazide (Hydrodiuril) 25 mg PO DAILY [facility] Last Admin: 11/06/16 10:29 Dose: 25 mg Ceftriaxone Sodium 1 gm/ (Sodium Chloride) 100 mls @ 100 mls/hr IVPB DAILY [facility] Last Admin: 11/06/16 10:30 Dose: 100 mls/hr Vancomycin HCl 1,000 mg/ (Sodium Chloride) 250 mls @ 166.6 mls/hr IVPB Q12H [facility] Last Admin: 11/06/16 10:00 Dose: Not Given Insulin Human Regular (Novolin R) 0 unit SC ACHS CB PRN Reason: Protocol Last Admin: 11/06/16 07:08 Dose: Not Given Lisinopril (Zestril) 20 mg PO DAILY [facility] Last Admin: 11/06/16 10:29 Dose: 20 mg Metformin HCl (Glucophage) 1,000 mg PO BID [facility] Last Admin: 11/06/16 10:29 Dose: 1,000 mg Metoprolol Tartrate (Lopressor) 25 mg PO BID [facility] Last Admin: 11/06/16 10:29 Dose: 25 mg Rosuvastatin Calcium (Crestor) 5 mg PO HS [facility] Last Admin: 11/05/16 22:30 Dose: 5 mg - Labs Labs: 11/05/16 08:45 11/05/16 08:45
--- NOTE | 2016-11-06 12:43 | CP.PCM.PN ---
Subjective - Date & Time of Evaluation Date of Evaluation: 11/06/16 Time of Evaluation: 10:15 - Subjective Subjective: Patient was seen and evaluated at bedside for follow-up on resolving Right foot blisters/cellulitis. Patient was resting comfortable, in NAD. No acute overnight events reported. Denies F/C/N/V/SOB/CP. Objective - Vital Signs/Intake and Output Vital Signs (last 24 hours): Temp Pulse Resp BP Pulse Ox 98.0 F 97 H 20 107/73 99 11/06/16 08:13 11/06/16 11:55 11/06/16 08:13 11/06/16 10:29 11/06/16 08:13 Intake and Output: 11/06/16 11/06/16 06:59 18:59 Intake Total 240 Balance 240 - Medications Medications: Current Medications Acetaminophen (Tylenol 325mg Tab) 650 mg PO Q6 PRN PRN Reason: Headache Last Admin: 11/03/16 22:46 Dose: 650 mg Home Med (Patient's Own Injectable) 10 unit SC DAILY [facility] Last Admin: 11/06/16 10:30 Dose: 10 unit Hydrochlorothiazide (Hydrodiuril) 25 mg PO DAILY [facility] Last Admin: 11/06/16 10:29 Dose: 25 mg Ceftriaxone Sodium 1 gm/ (Sodium Chloride) 100 mls @ 100 mls/hr IVPB DAILY [facility] Last Admin: 11/06/16 10:30 Dose: 100 mls/hr Vancomycin HCl 1,000 mg/ (Sodium Chloride) 250 mls @ 166.6 mls/hr IVPB Q12H [facility] Last Admin: 11/06/16 10:00 Dose: Not Given Insulin Human Regular (Novolin R) 0 unit SC ACHS CB PRN Reason: Protocol Last Admin: 11/06/16 07:08 Dose: Not Given Lisinopril (Zestril) 20 mg PO DAILY [facility] Last Admin: 11/06/16 10:29 Dose: 20 mg Metformin HCl (Glucophage) 1,000 mg PO BID [facility] Last Admin: 11/06/16 10:29 Dose: 1,000 mg Metoprolol Tartrate (Lopressor) 25 mg PO BID [facility] Last Admin: 11/06/16 10:29 Dose: 25 mg Rosuvastatin Calcium (Crestor) 5 mg PO HS [facility] Last Admin: 02/14/17 22:30 Dose: 5 mg - Labs Labs: 11/05/16 08:45 11/05/16 08:45 - Constitutional Appears: Non-toxic, No Acute Distress - Neurological Exam Neurological Exam: Alert, Awake, Oriented x3 - Psychiatric Exam Psychiatric exam: Normal Affect, Normal Mood - Additional Findings Additional findings: Right foot examination: Vascular: DP and PT faintly palpable , CFT < 3 sec x5; normal temperature gradient noted Derm: healing is noted at the previous blister sites in the 1st, 2nd and 3rd webspaces. No erythema, no edema, no open lesions noted at this time. Ortho: No pain with palpation, normal ROM of ankle and STJ Neuro: Limited protective sensation Assessment and Plan - Assessment and Plan (Free Text) Assessment: 51 y/o male with healing blister sites at the Right foot 2nd, 3rd and 4th webspaces; cellulitis resolved Plan: Patient was seen and evaluated at bedside Labs and vitals reviewed Right foot blister sites noted to be healing and celluliits has resolved Applied betadine DSD to the blister sites Patient is stable for discharge with PO abx from podiatric standpoint Discussed patient with Dr. Garnica Podiatry to follow while patient remains in house
--- NOTE | 2016-11-06 17:11 | CP.PCM.PN ---
Subjective - Date & Time of Evaluation Date of Evaluation: 11/06/16 Time of Evaluation: 05:00 - Subjective Subjective: dictated Objective - Vital Signs/Intake and Output Vital Signs (last 24 hours): Temp Pulse Resp BP Pulse Ox 98.0 F 97 H 20 107/73 99 11/06/16 08:13 11/06/16 11:55 11/06/16 08:13 11/06/16 10:29 11/06/16 08:13 Intake and Output: 11/06/16 11/06/16 06:59 18:59 Intake Total 240 360 Balance 240 360 - Medications Medications: Current Medications Acetaminophen (Tylenol 325mg Tab) 650 mg PO Q6 PRN PRN Reason: Headache Last Admin: 11/03/16 22:46 Dose: 650 mg Home Med (Patient's Own Injectable) 10 unit SC DAILY [facility] Last Admin: 11/06/16 10:30 Dose: 10 unit Hydrochlorothiazide (Hydrodiuril) 25 mg PO DAILY [facility] Last Admin: 11/06/16 10:29 Dose: 25 mg Ceftriaxone Sodium 1 gm/ (Sodium Chloride) 100 mls @ 100 mls/hr IVPB DAILY [facility] Last Admin: 11/06/16 10:30 Dose: 100 mls/hr Vancomycin HCl 1,000 mg/ (Sodium Chloride) 250 mls @ 166.6 mls/hr IVPB Q12H [facility] Last Admin: 11/06/16 10:00 Dose: Not Given Insulin Human Regular (Novolin R) 0 unit SC ACHS CB PRN Reason: Protocol Last Admin: 11/06/16 07:08 Dose: Not Given Lisinopril (Zestril) 20 mg PO DAILY [facility] Last Admin: 11/06/16 10:29 Dose: 20 mg Metformin HCl (Glucophage) 1,000 mg PO BID [facility] Last Admin: 11/06/16 10:29 Dose: 1,000 mg Metoprolol Tartrate (Lopressor) 25 mg PO BID [facility] Last Admin: 11/06/16 10:29 Dose: 25 mg Rosuvastatin Calcium (Crestor) 5 mg PO HS [facility] Last Admin: 11/05/16 22:30 Dose: 5 mg - Labs Labs: 11/05/16 08:45 11/05/16 08:45
--- NOTE | 2016-11-07 08:54 | PN ---
DATE: 11/06/2016 The patient was today was more comfortable. He was going to be discharged. He only has right foot b listers and cellulitis, and was cleared by the podiatry, and remained afebrile. Temperature was 98, pulse of 97, blood pressure 107/73, respirations are 20. HEAD: Atraumatic, normocephalic. NECK: Supple. LUNGS: Clear. No crackles or rales present. HEART: S1, S2 is regular. ABDOMEN: Soft, nontender, no guarding, no rigidity present. EXTREMITIES: Right foot had a dressing. He was told to follow with the cake maker and to finish the antibiotics. He was sent home on Augment in b.i.d. dose for 10 days, and with . Didier Mccarthy MD cc: [id number] TT: 11/06/2016 23:02:20 Confirmation # [id number] Dictation # [id number]
--- NOTE | 2016-11-07 12:08 | DS ---
DISCHARGE DIAGNOSES: Right foot cellulitis with a blister and localized abscess formation, diabetes mellitus, hypertension, hyperlipidemia. HISTORY OF PRESENT ILLNESS: The patient is a 51-year-old male with past medical history of diabetes mellitus, hypertension, hyperlipidemia, following up with PMD. Came in with 1-day history of right big toe swelling and oozing noted by his . In the ED, patient was found to be having cellulitis and patient is being admitted for further management. Today, patient is feeling much better. Denies any headache, dizziness. Denies any chest pain, shortness of breath or wheezing. Denies any nausea, vomiting, abdominal pain, diarrhea or constipation. Denies any urinary complaints. Denies any leg pains or leg cramps. Denies any joint swelling. Denies any other neurologic symptoms. PHYSICAL EXAMINATION: GENERAL: Middle-aged male, lying in bed, in no acute distress. VITAL SIGNS: Blood pressure 107/73, pulse 97, respiration 20, temperature 98 degrees Fahrenheit, O2 sat is 99% on room air. HEENT: Pupils equal, round, reacting to light and accommodation. Extraocular muscles intact. No icterus, no pallor. No oral thrush. No pharyngeal congestion. NECK: Supple. No JVD. LUNGS: Bilateral vesicular breath sounds. No wheezing, no rhonchi. CARDIOVASCULAR: S1 and S2 present, regular. ABDOMEN: Soft, nontender. Bowel sounds present. No guarding, no rigidity, no rebound tenderness noted. CENTRAL NERVOUS SYSTEM: Alert, awake, oriented x 3. No focal deficits noted. EXTREMITIES: Right foot with dressing in place. LABORATORIES: From yesterday, WBC 3.7, hemoglobin 13.7, hematocrit 40.4, platelets 117. Sodium 141, potassium 4.1, chloride 101, bicarb 33, BUN 14, creatinine 0.8, glucose 127, calcium 9.1, total bilirubin 0.4, AST 24, ALT 48, alkaline phosphatase 113, total protein 6.0. Hemoglobin A1c 6.8. Urine, 3+ glucose, otherwise negative. HOSPITAL COURSE: The patient was admitted to the hospital for cellulitis. The patient was started on IV antibiotics with vancomycin and Rocephin. The patient underwent bone scan, which was negative for any acute osteomyelitis. The patient was evaluated by podiatry. Wound cultures were done. Blood cultures and wound cultures were negative. The patient was also evaluated by ID. There is no osteomyelitis. The patient is improving clinically. The patient is cleared by podiatry and ID. The patient is recommended to have Augmentin 875 mg p.o. b.i.d. for 10 days. As patient is otherwise stable, patient was discharged home this afternoon and advised patient to follow up with PMD and podiatry as outpatient. The patient is advised to resume his medication. CONDITION UPON DISCHARGE: The patient is alert, awake, oriented x 3 and hemodynamically stable. DISCHARGE MEDICATIONS: Lisinopril 20 mg p.o. daily and hydrochlorothiazide 25 mg p.o. daily, metformin 1 gram p.o. b.i.d., Zocor 20 mg p.o. at bedtime, Toujeo 5 units subQ at night and 10 units in the morning, amoxicillin and clavulanate 875 mg p.o. b.i.d. for 10 days, Lopressor 25 mg p.o. b.i.d. DISCHARGE INSTRUCTIONS: Follow up with PMD. Follow up with podiatry. DISCHARGE DIET: Low sodium, low cholesterol, 1800-calorie ADA diet. ACTIVITY: As tolerated. Yeimi Cooper MD cc: [id number] TT: 11/07/2016 12:07:24 en MTDD
== END 2016-11-06 20:09 | disposition home or self-care (01) ==
LOC: C.ER 14:19 → C.9E 16:14 → INTOOBSV 19:08 → OBSVTOIN 19:08 → C.3T 20:35
PROVIDERS: ADMIT Internal Medicine; ATTEND Internal Medicine
DX: E11.628 Type 2 diabetes mellitus with other skin complications (principal); L03.115 Cellulitis of right lower limb; E11.40 Type 2 diabetes mellitus with diabetic neuropathy, unspecified; L02.611 Cutaneous abscess of right foot; Z79.4 Long term (current) use of insulin; I10 Essential (primary) hypertension; E78.5 Hyperlipidemia, unspecified; Z87.891 Personal history of nicotine dependence
CPT/HCPCS: 36415; 71010; 73660; 78315; 80053; 80061; 80202; 81001; 82948; 83036; 85025; 85651; 87040; 87070; 93005; 93923; 97116; 97162; 99285; A9503; G0378; G8978; G8979; J0696; J2543; J3370